=== PATIENT | female | born 1965 | race Caucasian/White ===

== ENCOUNTER 2017-06-14 19:57 | Emergency (ER) | payer OTHER ==
[~2017-06-14] VITALS: Ht 175.3 cm; Wt 62.1 kg
[2017-06-14 20:20] VITALS: BP 117/89
--- NOTE | 2017-06-14 20:53 | NUR ---
PT WAS SEEN AND EVALUATED BY Guy GARCIA.
[2017-06-14] MEDS ORDERED: KETOROLAC TROMETHAMINE INJ 60 MG/2 ML VIAL IM ONE (21:00)
[2017-06-14] MEDS ORDERED: KETOROLAC TROMETHAMINE INJ 30 MG/ML VIAL ONE (21:04)
== END 2017-06-14 21:23 | disposition home or self-care (01) ==
LOC: ER 19:59
DX: M94.0 Chondrocostal junction syndrome [Tietze] (principal); J20.9 Acute bronchitis, unspecified; G40.909 Epilepsy, unspecified, not intractable, without status epilepticus; Z88.5 Allergy status to narcotic agent; Z88.6 Allergy status to analgesic agent
CPT/HCPCS: 96372; 99283; A4606; J1885; Z7610